=== PATIENT | male | born 1975 | race Hispanic/Latino ===

== ENCOUNTER 2021-10-24 09:42 | Emergency (ER) | payer SELFPAY | END 2021-10-24 10:59 | disposition home or self-care (01) | LOC: CSHERS 09:42 | DX: H01.003 Unspecified blepharitis right eye, unspecified eyelid (principal); J01.90 Acute sinusitis, unspecified; B96.89 Other specified bacterial agents as the cause of diseases classified elsewhere; H10.9 Unspecified conjunctivitis; I10 Essential (primary) hypertension | CPT/HCPCS: 99282 ==